=== PATIENT | male | born 1990 | race African-American/Black ===

== ENCOUNTER 2019-02-01 20:10 | Emergency (ER) | payer OTHER ==
[~2019-02-01] VITALS: Ht 182.9 cm; Wt 102.3 kg
[2019-02-01 22:10] LABS: INFLUENZA A AMPLIFICATION NEGATIVE (NEGATIVE); INFLUENZA B AMPLIFICATION NEGATIVE (NEGATIVE)
[2019-02-01] MEDS ORDERED: guaiFENesin SYRUP 200 MG/10 ML UDC PO ONE (22:45)
[2019-02-01] MEDS ORDERED: IBUPROFEN 800 MG TAB PO ONE (22:45)
[2019-02-01] MEDS ORDERED: TESS100C PO (23:26)
[2019-02-02 00:28] VITALS: BP 126/67
--- NOTE | 2019-02-02 08:57 | REP ---
Chest x-ray: Two views. History: Cough and fever. . Comparison study: No comparison study. . Findings: The lungs are well inflated and free of infiltrate. The pleural angles are sharp. The heart size is normal. Pulmonary vasculature is not increased. No significant bony abnormality is seen. Impression: Negative chest x-ray. Electronically Signed by Olayinka Brower MD 02/02/2019 08:49 A
== END 2019-02-02 00:30 | disposition home or self-care (01) ==
LOC: M ED 20:10
DX: J06.9 Acute upper respiratory infection, unspecified (principal)

== ENCOUNTER → 2019-04-26 | Outpatient (REF) | payer OTHER ==
[~2019-04-26] MED LIST: TESS100C PO
[2019-04-26 14:33] LABS: SEMEN APPEARANCE OPAQUE (OPAQUE); SEMEN VISCOSITY LIQUID (LIQUID); SEMEN VOLUME 1.7 ml (2.0-5.0); SEMEN pH 8.5 (7.0-8.0)
[2019-04-26 14:34] LABS: SPERM CONCENTRATION 41.1 M/ml (>=15.0); WBC CONCENTRATION >1 M/ml (<=1 M/ml)
== END ==
LOC: M LAB REF 14:20
PROVIDERS: ATTEND Advanced Practice Midwife
DX: Z31.61 Procreative counseling and advice using natural family planning (principal)